=== PATIENT | female | born 1985 | race Caucasian/White ===

== ENCOUNTER 2024-01-03 06:04 | Day surgery (SDC) | payer OTHER, SELFPAY ==
[2023-12-23 13:39] VITALS: BMI 21.4
[2023-12-23 14:14] LABS: % Basophils 0.9 % (0-2); % Eosinophils 2.8 % (0-6); % Immature Granulocytes 0.3 % (0-0.5); % Lymphocytes 29.4 % (20.5-51.1); % Monocytes 6.7 % (1.7-9.3); % Neutrophils 59.9 % (42.2-75.2); Absolute Basophils 0.1 10^3/uL (0-0.2); Absolute Eosinophils 0.2 10^3/uL (0-0.7); Absolute Monocytes 0.5 10^3/uL (0.1-0.6); Absolute Neutrophils 4.1 10^3/uL (1.4-6.5); Hematocrit 33.8 % (37.0-47.0); Hemoglobin 11.6 g/dL (12.0-16.0); Mean Corp Hgb Conc. 34.3 g/dL (33.0-37.0); Mean Corpuscular Volume 84.5 fL (81.0-99.0); Mean Platelet Volume 10.7 fL (7.4-10.4); Nucleated Red Blood Cells % 0 %; Platelet Count 275 10^3/uL (130-400); Red Cell Dist. Width 13.1 % (11.5-14.5); White Blood Cell Count 6.9 10^3/uL (4.8-10.8)
[2023-12-23 14:18] LABS: HCG, Serum Qualitative Screen Negative
[2024-01-03] VITALS (9 sets, daily range): BP systolic 101–124; BP diastolic 62–75; BMI 21.4
[2024-01-03 06:45] LABS: Glucose - Point of Care 84 mg/dl (70-99)
[2024-01-03] MEDS: NORMOSOL-R 1000 IV (06:46)
[2024-01-03 08:38] LABS: Glucose - Point of Care 168 mg/dl (70-99)
[2024-01-03 09:18] LABS: Glucose - Point of Care 141 mg/dl (70-99)
[2024-01-03] MEDS: DILAUDID 0.5 MG IV (09:47)
== END 2024-01-03 10:53 | disposition home or self-care (01) ==
LOC: SDS 06:04
PROVIDERS: ATTENDING PHYSICIAN Obstetrics & Gynecology Gynecology; FAMILY PHYSICIAN Family Medicine
DX: N80.103 Endometriosis of bilateral ovaries, unspecified depth (principal); N94.89 Other specified conditions associated with female genital organs and menstrual cycle; N80.353 Endometriosis of bilateral pelvic sidewall, unspecified depth
CPT/HCPCS: 49320; 36415; 82962; 84703; 85025; 86850; 86900; 86901

== ENCOUNTER → 2024-02-26 08:22 | Outpatient (REF) | payer OTHER, SELFPAY | LOC: HWRAD 08:22 | PROVIDERS: ATTENDING PHYSICIAN Obstetrics & Gynecology Gynecologic Oncology; FAMILY PHYSICIAN Family Medicine | DX: R19.03 Right lower quadrant abdominal swelling, mass and lump (principal); R19.04 Left lower quadrant abdominal swelling, mass and lump; N80.121 Deep endometriosis of right ovary; R10.30 Lower abdominal pain, unspecified | CPT/HCPCS: 74177; Q9967 ==

== ENCOUNTER 2024-03-31 06:20 | Day surgery (SDC) | payer OTHER, SELFPAY ==
[2024-03-31] VITALS (12 sets, daily range): BP systolic 99–128; BP diastolic 61–78; BMI 20.9
[2024-03-31 11:02] LABS: Glucose - Point of Care 112 mg/dl (70-99)
[2024-03-31] MEDS: CELEBREX 200 MG PO (11:24)
[2024-03-31] MEDS: NEURONTIN 300 MG PO (11:24)
[2024-03-31] MEDS: TYLENOL 1000 MG PO (11:24)
[2024-03-31] MEDS: NORMOSOL-R 1000 IV (11:40)
[2024-03-31] MEDS: HEPARIN 5000 UNITS SC (11:53)
--- NOTE | 2024-03-31 15:43 | OR.RPT ---
Operative Report
Operative Report
Preoperative diagnosis: Bilateral adnexal masses suspected to be endometriosis, elevated CA125, lower abdominal pain
Postoperative diagnosis: Stage IV endometriosis
Surgeon: Shailesh Claire MD
Assist: Alonso Monets PA-C, LILLIANA Ordoñez
Anesthesia: General endotracheal intubation, tap block
Complications none
estimated blood loss 200 c
Procedures robotic assisted laparoscopic total hysterectomy, left salpingo-oophorectomy, right ovarian cystectomy, extensive pelvic adhesiolysis, retroperitoneal exploration with bilateral ureterolysis, resection of multiple peritoneal surfaces,
suture of serosa of sigmoid colon, rigid proctosigmoidoscopy
Procedures in detail: This patient is brought to the operating room for definitive management of bilateral adnexal masses suspected to be endometriosis. She was brought to the operating room roughly 2 months ago by her general [employer] where the
laparoscopic procedure was aborted given severity of the findings. Upon arrival to the operating room she was placed in supine position general anesthesia was administered she was intubated without any difficulty. She was placed in lithotomy
position using yellowfin stirrups and prepped on the abdomen perineum and vagina. The patient was draped. Timeout procedure was completed. She had received Ancef 2 g IV and had received that DVT prophylaxis with heparin. Next Saavedra catheter was
placed under sterile condition into the bladder. Uterine manipulator ux architect type with 3 cm PATRICIO ring was placed in the uterine cavity which was extremely anteverted and sounded to about 9 cm. Vaginal cuff occluder was insufflated. Our
attention was turned abdominally, Veress needle was inserted just below the left subcostal margin and the abdomen was insufflated with CO2 gas up to pressure of 15 mmHg. Next8 mm robotic port was inserted 25 cm cephalad to symphysis pubis and mid
epigastrium, additional 8 mm robotic ports were placed right and left upper quadrant as well as right and left lateral abdomen and air seal was used.
Inspection of the upper abdomen reveals implants of endometriosis and hemosiderin deposits on the right diaphragm as well as capsule of the liver. The left hemidiaphragm was normal, liver spleen stomach and omentum were unremarkable, there were
adhesions in the right lower quadrant secondary to prior appendectomy which were eventually taken down and freed up, the pelvis revealed evidence of bilateral large 8 cm ovarian cysts which were adherent to posterior aspect of the uterus, and the
sigmoid colon was moderately adherent to left tube and ovary as well as posterior aspect of the uterus. Multiple deposits of hemosiderin was also noted in the peritoneum of the pelvis. I went ahead and took down the adhesions of the colon to the
left pelvis, a generous portion of the left gutter was removed and submitted to pathology. Right and left round ligaments were dissected open and the sealed and divided. Both retroperitoneal spaces were opened. Both ureters were identified and
the space between ureter and IP ligaments were opened up. On the right side the fallopian tube was gradually peeled off from the cyst, it is essentially both cysts ruptured and a large amount of chocolate colored brown fluid leaked in the pelvis.
Next I was able to preserve a portion of the right ovary and then peeled the endometrioma away from the normal appearance ovary. Multiple areas of bleeding on the capsule of the ovary was cauterized and bleeding was controlled. Right ovarian cyst
was submitted to pathology. On the left side we began to dissect the ovary away from the uterus, we then took the adhesions between the sigmoid colon and the ovary until it was completely free, I attempted an ovarian cystectomy however the ovary in
my opinion did not have adequate amount of blood supply to survive eventually and decision was made to perform a left salpingo-oophorectomy initially the left fallopian tube and then the entire ovary was removed. IP ligament was sealed and divided.
Next bladder flap was sharply developed and advanced below the cervicovaginal junction. A generous portion of the anterior cul-de-sac containing hemosiderin deposits were removed and submitted to pathology. Uterosacral ligaments had thick
implants of endometriosis which was resected on the right side. Both uterine arteries and pedicles were sealed and divided. Circumferential incision was made over the Patricio ring. I was able to extract the uterus and cervix through the vagina as
well as the right ovarian cyst as well as the left tube and ovary. I did not see any additional major specimens to be removed. The vaginal cuff was closed with 0 Vicryl suture ligatures in a [id number] fashion and the right and left apices,
next V-Loc suture was used to close the vaginal cuff bidirectionally in 2 layers. We focused on establishing good hemostasis in the pelvis. The rectum was insufflated with air and there was no evidence of leakage of air. We noticed that there is
a serosal tear in low pelvis when it was adherent to the posterior uterus, this was repaired with a [id number] suture of 3-0 Vicryl. I did spray Tisseel in the posterior cul-de-sac as well as over the right ovary. I examined the bowel and
omentum and while I see hemosiderin deposits I do not see large endometriotic implants. At this point we proceeded to remove all the ports and relieve the pneumoperitoneum. Robotic system was undocked. The laparoscopic incisions were closed at
the level of the skin with 4-0 Monocryl. Vagina was irrigated and there was no evidence of lacerations or bleeding. Saavedra catheter was removed. Patient was awakened extubated and returned back to recovery room stable awake and extubated
condition. Counts of laps instruments and needle was correct x 2. I was present and scrubbed for entire procedure as dictated above.
Disposition: PACU
Status extubated awake
[2024-03-31 15:54] LABS: Glucose - Point of Care 76 mg/dl (70-99)
[2024-03-31] MEDS: SUBLIMAZE 25 MCG IV (16:06)
[2024-03-31] MEDS: TYLENOL 650 MG PO (17:16)
[2024-03-31 17:36] LABS: Glucose - Point of Care 76 mg/dl (70-99)
== END 2024-03-31 18:00 | disposition home or self-care (01) ==
LOC: SDS 06:20
PROVIDERS: ATTENDING PHYSICIAN Obstetrics & Gynecology Gynecologic Oncology
DX: N80.00 Endometriosis of the uterus, unspecified (principal); N80.103 Endometriosis of bilateral ovaries, unspecified depth; N80.202 Endometriosis of left fallopian tube, unspecified depth
CPT/HCPCS: 58571; 58662; 88305; 88307; 82962; 86850; 86900; 86901; 88112; C9250

== ENCOUNTER → 2024-11-06 14:52 | Outpatient (REF) | payer OTHER, SELFPAY | LOC: WDC 14:52 | PROVIDERS: ATTENDING PHYSICIAN Obstetrics & Gynecology Gynecologic Oncology; FAMILY PHYSICIAN Family Medicine | DX: Z12.31 Encounter for screening mammogram for malignant neoplasm of breast (principal) | CPT/HCPCS: 77063; 77067 ==

== ENCOUNTER → 2025-11-09 11:43 | Outpatient (REF) | payer OTHER, SELFPAY | LOC: WDC 11:43 | PROVIDERS: ATTENDING PHYSICIAN Physician Assistant Surgical; FAMILY PHYSICIAN Family Medicine | DX: Z12.31 Encounter for screening mammogram for malignant neoplasm of breast (principal) | CPT/HCPCS: 77063; 77067 ==